=== PATIENT | male | born 1955 | race Caucasian/White ===

== ENCOUNTER 2018-03-09 06:00 | Observation (INO) | payer OTHER ==
[~2018-03-09 06:00] MED LIST: Buffered Lidocaine 0.9% SYRIN* 5 ML/SYR SYRINGE INTRADERM ONE; Sodium Citrate/Citric Acid* 15 ML UDC PO ONE
[2018-03-09] MEDS ORDERED: Buffered Lidocaine 0.9% SYRIN* 5 ML/SYR SYRINGE ONE (06:04)
[2018-03-09] MEDS ORDERED: Sodium Citrate/Citric Acid* 15 ML UDC ONE (06:04)
[2018-03-09] MEDS ORDERED: ceFAZolin 2 GM PREMIX (*) 2 GM/50 ML BAG IVPB ONE (06:04)
[2018-03-09] MEDS ORDERED: fentaNYL* 50 MCG/ML 2 ML VIAL (100 MCG VIAL) ONE ×2 (07:02→10:09)
[2018-03-09] MEDS ORDERED: Midazolam* 1 MG/ML 2 ML VIAL (2 MG) ONE (07:02)
[2018-03-09] MEDS ORDERED: Bupivacaine 0.25% SDV* 30 ML ONE ×4 (07:03→08:46)
[2018-03-09] MEDS ORDERED: Dexamethasone IV* 4 MG/ML 1 ML (4 MG) ONE (08:20)
[2018-03-09] MEDS ORDERED: Naloxone* 0.4 MG/ML 1 ML VIAL IV PRN (09:06)
[2018-03-09] MEDS ORDERED: Ondansetron ODT TAB* 4 MG PO PRN (09:06)
[2018-03-09] MEDS ORDERED: Propofol* 10 MG/ML 20 ML BTL IV PUSH ONE (09:31)
[2018-03-09] MEDS ORDERED: Ketorolac INJ* 30 MG/ML 1 ML VIAL ONE (09:32)
[2018-03-09] MEDS ORDERED: Acetaminophen TAB* 325 MG PO PRN (10:03)
[2018-03-09] MEDS ORDERED: oxyCODONE/Acetamin 5/325 MG* TAB PO PRN (10:03)
[2018-03-09] MEDS ORDERED: Cyclobenzaprine TAB* 10 MG PO PRN (10:03)
[2018-03-09] MEDS ORDERED: Polyethylene Glycol 3350* 17 GM PACKET PO PRN (10:03)
[2018-03-09] MEDS ORDERED: diPHENhydraMINE IV* 50 MG/ML 1 ml VIAL (BENADRYL) IV PRN (10:03)
[2018-03-09] MEDS ORDERED: Ondansetron TAB* 4 MG PO PRN (10:03)
[2018-03-09] MEDS ORDERED: Morphine VIAL* 4 MG/ML VIAL (1 ml vial) IV PRN (10:03)
[2018-03-09] MEDS ORDERED: Bisacodyl SUPP* 10 MG SUPP PR PRN (10:03)
[2018-03-09] MEDS ORDERED: Magnesium Hydroxide LIQ* 30 ML UDC PO PRN (10:03)
[2018-03-09] MEDS ORDERED: Ondansetron INJ* 2 MG/ML VIAL IV PRN (10:03)
[2018-03-09] MEDS: fentaNYL* 50 MCG/ML 2 ML VIAL (100 MCG VIAL) IV PRN ×2 (10:38→10:47)
--- NOTE | 2018-03-09 10:39 | RAD ---
HISTORY: Status post left knee arthroplasty COMPARISONS: February 22, 2018 VIEWS: 2, Frontal and lateral views of the left knee FINDINGS: BONE DENSITY: Normal. BONES: The patient is status post left knee arthroplasty. There is no hardware failure or osteolysis. JOINTS: The patient is status post left knee arthroplasty. ALIGNMENT: There is no dislocation. SOFT TISSUES: There is postsurgical change to the soft tissues. OTHER FINDINGS: None. IMPRESSION: STATUS POST LEFT KNEE ARTHROPLASTY
[2018-03-09] MEDS ORDERED: oxyCODONE/Acetamin 5/325 MG* TAB ONE (10:43)
[2018-03-09] MEDS ORDERED: Ondansetron ODT TAB* 4 MG ONE (11:10)
[2018-03-09] MEDS: oxyCODONE/Acetamin 5/325 MG* TAB PO PRN ×2 (14:45→20:55)
[2018-03-09] MEDS: ceFAZolin 1 GM in Dextrose (*) 1 GM/50 ML BAG IVPB SCH (16:19)
[2018-03-09] MEDS ORDERED: Warfarin TAB(*) 6 MG PO ONE (17:00)
[2018-03-09] MEDS: oxyCODONE TAB* 5 MG TAB PO PRN ×2 (17:41→22:46)
[2018-03-09] MEDS: Docusate CAP* 100 MG PO SCH (20:56)
[2018-03-09] MEDS: Magnesium Hydroxide LIQ* 30 ML UDC PO SCH (20:56)
[2018-03-09] MEDS ORDERED: Ondansetron SYRINGE* 4 MG/2 ML SYRINGE (from 40mg/20ml vial) IV PRN (22:00)
[2018-03-10] MEDS: ceFAZolin 1 GM in Dextrose (*) 1 GM/50 ML BAG IVPB SCH ×2 (00:16→07:50)
[2018-03-10 05:21] LABS: Hematocrit 31 % (42-52); Hemoglobin 10.9 g/dl (14.0-18.0); Mean Platelet Volume 10.3 um3 (7.4-10.4); Platelet Count 165 10^3/ul (150-450)
[2018-03-10 05:30] LABS: INR 0.98 (0.77-1.02)
[2018-03-10] MEDS: oxyCODONE/Acetamin 5/325 MG* TAB PO PRN ×3 (05:36→17:06)
[2018-03-10 05:45] LABS: EGFR Non-African American 100.5 (>60)
[2018-03-10] MEDS: oxyCODONE TAB* 5 MG TAB PO PRN (07:50)
[2018-03-10] MEDS: Magnesium Hydroxide LIQ* 30 ML UDC PO SCH (07:50)
[2018-03-10] MEDS: Docusate CAP* 100 MG PO SCH (07:50)
--- NOTE | 2018-03-10 08:01 | PN ---
Progress Note - Progress Note Date of Service: 03/10/18 SOAP: Subjective: 62 y/o male s/p L TKA by Dr Higgins 03/09/2018, uncomplicated. Patient overall feeling well, mild nausea with one episodes of vomiting, patient not concerned, feels resolving. VSS, afebrile overnight. Objective: General- Well appearing, NAD, AO Sitting in chair upright without difficulty. MSK- LLE- DF/PF = b/l, PT 2+, negative homans sign surgical dressing intact over L hip, no drainage, erythema, induration. SITLT. Vital Signs Temp 98.2 F 03/10/18 11:46 Pulse 60 03/10/18 11:46 Resp 16 03/10/18 12:22 BP 102/49 03/10/18 11:46 Pulse Ox 99 03/10/18 11:46 Intake & Output 03/09/18 03/10/18 03/10/18 18:59 06:59 18:59 Intake Total 4535 1150 2601 Output Total 350 2800 300 Balance 4185 -1650 2301 Intake: IV Fluids 4535 1956 LR 4485 1956 NS 50ML, Cefazolin 2G 50 IVPB 165 ABX - CEFAZOLIN 165 Oral 1150 480 Output: Urine 100 300 Carrero 2800 Estimated Blood Loss 250 Assessment: Stable 62 y/o male s/p L TKA by Dr Higgins 03/09/2018, uncomplicated. Plan: - DVT prophylaxis- lovenox, coumadin INR 0.98, 8mg coumadin tonight. - Continue PT/ OT - Follow up with Dr. Higgins within 10-14 days - H&H - stable - post-op IV ABX - running - D/C to home today, VNS set up Acetaminophen (Tylenol Tab*) 650 mg PO Q4H PRN PRN Reason: PAIN OR TEMPERATURE Bisacodyl (Dulcolax Supp*) 10 mg MA DAILY PRN PRN Reason: constipation Cyclobenzaprine HCl (Flexeril Tab*) 10 mg PO TID PRN PRN Reason: SPASMS Diphenhydramine HCl (Benadryl Iv*) 12.5 mg IV Q6H PRN PRN Reason: PRURITIS Docusate Sodium (Colace Cap*) 100 mg PO BID LUDMILA Last Admin: 03/10/18 07:50 Dose: 100 mg Enoxaparin Sodium (Lovenox(*)) 40 mg SUBCUT Q24H [facility] Last Admin: 03/10/18 12:22 Dose: 40 mg Lactated Ringer's (Lactated Ringers 1000 Ml Bag*) 1,000 mls @ 100 mls/hr IV PER RATE [facility] Last Admin: 03/09/18 22:19 Dose: 100 mls/hr Lactulose (Lactulose*) 30 ml PO Q6H PRN PRN Reason: constipation Magnesium Hydroxide (Milk Of Magnesia Liq*) 30 ml PO BID [facility] Last Admin: 03/10/18 07:50 Dose: 30 ml Magnesium Hydroxide (Milk Of Magnesia Liq*) 30 ml PO Q6H PRN PRN Reason: constipation Morphine Sulfate (Morphine Vial*) 2 mg IV Q2H PRN PRN Reason: PAIN Ondansetron HCl (Zofran Tab*) 4 mg PO Q6H PRN PRN Reason: NAUSEA Last Admin: 03/09/18 16:19 Dose: 4 mg Ondansetron HCl (Zofran Syringe*) 4 mg IV Q6H PRN PRN Reason: nausea Oxycodone HCl (Roxycodone Tab*) 10 mg PO Q4H PRN PRN Reason: SEVERE PAIN Last Admin: 03/10/18 07:50 Dose: 10 mg Oxycodone/Acetaminophen (Percocet 5/325 Tab*) 2 tab PO Q4H PRN PRN Reason: PAIN Last Admin: 03/10/18 12:22 Dose: 2 tab Oxycodone/Acetaminophen (Percocet 5/325 Tab*) 1 tab PO Q4H PRN PRN Reason: PAIN Last Admin: 03/09/18 10:45 Dose: 1 tab Pharmacy Profile Note (Coumadin Daily Reminder*) 0 note FOLLOW UP 1700 [facility] Polyethylene Glycol/Electrolytes (Miralax*) 17 gm PO DAILY PRN PRN Reason: Constipation Warfarin Sodium (Coumadin Tab(*)) 8 mg PO ONCE@1700 ONE PRN Reason: Protocol Stop: 03/10/18 17:01
[2018-03-10] MEDS ORDERED: Enoxaparin(*) 40 MG/0.4 ML SYR SUBCUT SCH (12:00)
[2018-03-10 16:24] VITALS: BP 115/50
[2018-03-10] MEDS ORDERED: Warfarin TAB(*) 4 MG PO ONE (17:00)
--- NOTE | 2018-03-10 19:41 | OP ---
OPERATIVE REPORT: DATE OF OPERATION: 03/09/18 DATE OF : 53 SURGEON: Britany Higgins MD INTERNAL CONTROLS ANALYST: RENATE Addison Ms. did help throughout the procedure with preparation of the wound retraction, manipulation of the knee and wound closure. ANESTHESIOLOGIST: Dr. Broussard ANESTHESIA: Adductor nerve block with general anesthesia. PRE-OP DIAGNOSIS: Severe end-stage degenerative osteoarthritis of the left knee joint. POST-OP DIAGNOSIS: Severe end-stage degenerative osteoarthritis of the left knee joint. OPERATIVE PROCEDURE: Left total knee arthroplasty. TOURNIQUET TIME: 47 minutes. COMPLICATIONS: None. SPECIMEN: Bone and cartilage from the left knee joint sent to Pathology. ESTIMATED BLOOD LOSS: 350 cc. DRAINS: Medium Hemovac drain. HARDWARE USED: This is cemented [employer] total knee arthroplasty hardware. Two packages of S implex bone cement were used. For the femur, an Oxinium plus size 7 posterior stabilized Legion femo ral component. For the tibia, a size 7 left Shameka II tibial base plate. For the insert, a size 7/ 8, 9 mm posterior stabilized articular insert. For the patella, a 38, 3-peg all poly patella. BRIEF HISTORY/INDICATIONS: Mr. Thompson is a 62-year-old gentleman with years of increasingly sever e left knee pain. Patient failed conservative treatment with antiinflammatories, pain medication, in tra-articular injection, and physical therapy. He elected to undergo left total knee arthroplasty du e to continued pain and decreased quality of life. His radiograph showed [id number] arthritis. Inf ormed consent was obtained from the patient. He understood the risks of surgery included but were no t limited to bleeding, infection, damage to nearby structures, continued pain, need for further surge ry, intraoperative fracture, nerve palsy, hardware failure or loosening, knee stiffness, loss of china on, stroke, heart attack, blood clot and . He wished to proceed. INTRAOPERATIVE FINDINGS: Intraoperatively, the patient was noted to have severe end-stage arthritis with complete loss of cartilage in the medial and patellofemoral compartment. DESCRIPTION OF PROCEDURE: Mr. Thompson was identified in the preanesthesia unit. His left lower ext remity was marked as the correct operative side. Informed consent was signed and placed on the chart . Patient was taken to the operating room and placed under general anesthesia with an adductor nerve block. A Carrero catheter was placed. Tourniquet was placed on the left thigh. Left lower extremity was prepped and draped in the usual sterile fashion. Preop time-out was made to correctly identify the patient, side, and site. Appropriate perioperative antibiotics were given within 1 hour of incis ion. Tourniquet was inflated and total tourniquet time for this procedure was 47 minutes. A midline incis ion was made with a 10-blade and carried down to the extensor mechanism. A new 10-blade was used to make a standard medial parapatellar arthrotomy. The patella was subluxed laterally. Electrocautery was used to subperiosteally elevate the soft tissue off the superomedial tibia to the mid sagittal pl ane. The knee was flexed up. The anterior horn of the lateral meniscus and ACL were sharply release d. A drill was used to enter the distal femur. Intramedullary distal femoral cutting guide was pinne d on the distal femur. A distal femur was sized to a size 7. The multi-cutting jig was pinned on th e distal femur. Oscillating saw was used to make the 4 chamfer cuts. The PCL was completely release d. The tibia was subluxed anteriorly. Extramedullary tibial cutting guide was pinned on the proxima l tibia. Oscillating saw was used to make the proximal tibial cut perpendicular to the mechanical ax is of the tibia. The bone was carefully removed. The knee was brought out into full extension. Spacer block had good fit with medial and lateral liga mentous balancing. Knee was in full extension. Flexion and extension gaps were well balanced. The knee was flexed up. Lamina performance test consultant was placed both medially and laterally. Any remaining meniscus was carefully removed using electrocautery. Curved osteotome was used to remove any osteophytes from the posterior condyles. A left size 7 femoral trial was impacted onto the distal femur. This had e xcellent fit. The box for the posterior stabilized implant was prepared using a reamer and box cut o steotome. Size 7 tibial tray trial with a 9- mm insert trial was placed and the knee was taken throu range of motion. The knee had full extension to 130 degrees of flexion. There was satisfactory patellofemoral trackin g. The patella was everted. 9 mm of patellar bone and cartilage was carefully removed using an osci llating saw. The patella was sized to a size 38. Three peg holes were drilled through the size 38 g uide. The 38 trial patella was placed and the knee was taken through range of motion. There was sat isfactory patellofemoral tracking. All trials were removed. Tibia was subluxed anteriorly and sized to a size 7. Proximal tibia was pre pared using a size 7 keel punch. All bony cut surfaces were copiously irrigated with sterile saline and dried. Final implants were cemented into place, starting with the tibia, followed by the femur a nd last the patella. An 9-mm insert trial was placed and the knee was brought out into full extension . The tourniquet was turned down at 47 minutes. The knee was copiously irrigated with sterile saline . Electrocautery was used to obtain meticulous hemostasis. Once the cement had fully cured, the insert trial was removed. Any excess cement was removed from ar ound the capsule and hardware. Final insert chosen was a 9-mm posterior stabilized articular insert size 7/8. This was locked into position on the tibial tray. Stability of the insert was checked and rechecked and noted to be stable. The knee was copiously irrigated with sterile saline. The extensor mechanism was closed using interr upted #1 Vicryls over a medium Hemovac drain. The rest of the incision was closed in a layered fashi on using 0 and 2-0 Vicryls. Skin was closed using running 3-0 nylon suture. Sterile Xeroform, 4x4's and Webril were used to cover the incision. Alex wrap and cold pack were placed over this. The nahed ent's anesthesia was reversed without difficulty. He was taken to the PACU in stable condition. Rec ommended weightbearing will be weightbearing as tolerated. Intended DVT prophylaxis will be Coumadin with Lovenox bridge. [id number]/[facility] #: [id number]
== END 2018-03-10 17:20 | disposition home or self-care (01) ==
LOC: OR 06:00 → SSU 12:26
PROVIDERS: ADMIT Orthopaedic Surgery Adult Reconstructive Orthopaedic Surgery; ATTEND Orthopaedic Surgery Adult Reconstructive Orthopaedic Surgery
PROC: 0SRD0J9 Replacement of Left Knee Joint with Synthetic Substitute, Cemented, Open Approach (ICD-10-PCS; principal; 2018-03-09 07:30)
DX: M17.12 Unilateral primary osteoarthritis, left knee (principal); M25.562 Pain in left knee; M25.462 Effusion, left knee
CPT/HCPCS: 36415; 80048; 85014; 85018; 85049; 85610; 96374; A9270-GY; C1776; G0378; G8987-GO-CI; G8988-GO-CI; G8989-GO-CI; J0690; J1100; J1650; J1885; J2250; J2704; J3010